=== PATIENT | male | born 1960 | race Caucasian/White ===

== ENCOUNTER 2021-02-02 05:56 | Day surgery (SDC) | payer OTHER ==
[~2021-02-02 05:56] MED LIST: CIPRO500 MG PO; PERCOCET 5/3251 TAB PO; RECTICARE30 GM TP
== END 2021-02-02 13:25 | disposition home or self-care (01) ==
LOC: AMB-ENDOS 05:56
PROVIDERS: ATTEND Surgery
DX: D12.0 Benign neoplasm of cecum (principal); K64.8 Other hemorrhoids; Z20.822 Contact with and (suspected) exposure to COVID-19